=== PATIENT | male | born 1945 | race Caucasian/White ===

== ENCOUNTER 2023-08-18 10:10 | Outpatient (REF) | payer MEDICARE, SELFPAY ==
--- NOTE | ~2023-08-18 | XR_ITS ---
EXAMINATION: XR CHEST CLINICAL INFORMATION: Chronic cough, patient states coughing for a few months, no wheezing or shortness of breath. COMPARISON: None available. TECHNIQUE: 3 views of the chest. FINDINGS: The lungs are well-inflated. There is no gross pneumothorax. Rightward curvature of the thoracic spine. Heart size is normal. No pleural effusion. No focal consolidation. Moderate degenerative changes in the thoracic spine. XR/XR chest 2V IMPRESSION: Well inflated lungs.
== END 2023-08-18 10:11 | disposition home or self-care (01) ==
LOC: HO.XRAY 10:10
PROVIDERS: PCP Internal Medicine; Visit Provider Otolaryngology
DX: R05.3 Chronic cough (principal)
CPT/HCPCS: 71046